=== PATIENT | male | born 1990 | race Two or more races ===

== ENCOUNTER 2023-04-02 10:46 | Emergency (ER) | payer OTHER ==
[~2023-04-02] VITALS: Ht 175.3 cm; Wt 77.1 kg
[2023-04-02 11:41] VITALS: BP 126/81; TEMP 98.1; O2SAT 100
[2023-04-02] MEDS: CEFTRIAXONE 500 MG VIAL IM ONE (12:00)
[2023-04-02] MEDS ORDERED: CEFTRIAXONE 500 MG VIAL ONE (12:09)
[2023-04-02] MEDS ORDERED: LIDOCAINE 2% 20 ML MDV ONE (12:09)
[2023-04-02] MEDS ORDERED: DOXY100T2 PO (13:15)
[2023-04-02 15:06] LABS: HIV-1 p24 ANTIGEN NON REACTIVE (NONREACTIVE); HIV-1/2 ANTIBODY NON REACTIVE (NONREACTIVE)
[2023-04-03 07:06] LABS: RAPID PLASMA REAGIN QUAL. Non Reactive (Non Reactive)
[2023-04-04 03:37] LABS: CHLAMYDIA TRACHOMATIS NAA Negative (Negative); NEISSERIA GONORRHOEAE NAA Negative (Negative)
== END 2023-04-02 13:40 | disposition home or self-care (01) ==
LOC: ER 10:46
DX: A64 Unspecified sexually transmitted disease (principal)
CPT/HCPCS: 99283; 86592; 86593; 96372; 36415; 87806; 87491; 87591; J0696; J3490

== ENCOUNTER 2023-04-06 10:49 | Emergency (ER) | payer OTHER ==
[~2023-04-06] VITALS: Ht 175.3 cm; Wt 77.1 kg
[~2023-04-06 10:49] MED LIST: DOXY100T2 PO
[2023-04-06 11:24] VITALS: BP 136/84; TEMP 98.1
[2023-04-06] MEDS ORDERED: DOXY100C2 PO (11:51)
[2023-04-06] MEDS ORDERED: CLOT15CR27 TP (11:51)
[2023-04-06 12:10] VITALS: O2SAT 97
== END 2023-04-06 12:11 | disposition home or self-care (01) ==
LOC: ER 10:52
DX: Z76.0 Encounter for issue of repeat prescription (principal)